=== PATIENT | male | born 2000 | race Caucasian/White ===

== ENCOUNTER 2025-02-24 01:27 | Day surgery (SDC) | payer OTHER, SELFPAY ==
[2025-02-08 15:33] VITALS: BMI 26.6
[2025-02-24 08:58] VITALS: BP 124/86; PULSE 67; RESP 18; TEMP 36.7; O2SAT 100; BMI 27.0
[2025-02-24] MEDS: LACTATED RINGERS 1,000 ML 150 ML IV CONT (09:14)
--- NOTE | 2025-02-24 09:28 | WPDANESEPPF ---
Anes - Initial Pre Proc Eval Procedure: Operation Date: 02/24/25 10:00 Proposed Procedures p Esophagogastroduodenoscopy - Zaire Jones MD Date/Time: 02/24/25 09:28 Surgeon: Zaire Jones MD Pre Op Diagnosis: Gastro-esophageal reflux disease without esophagit Patient Data Age: 24 Gender: M Height: 1.75 m Weight: 83.1 kg Last Vital Signs Temp 36.7 C 02/24/25 08:58 Pulse 67 02/24/25 08:58 Resp 18 02/24/25 08:58 BP 124/86 02/24/25 08:58 Pulse Ox 100 02/24/25 08:58 O2 Del Method Room Air 02/24/25 08:58 Allergies Allergy/AdvReac Type Severity Reaction Status Date / Time No Known Allergies Allergy Unknown Verified 02/24/25 08:57 Home Medications ?Medication ?Instructions ?Recorded ?Confirmed ?Type omeprazole 20 mg capsule,delayed 20 mg PO DAILY #90 caps 02/05/24 02/24/25 Rx release Patient hx anesthesia problems: none Family hx anesthesia problems: none Results Review: All pre-operative results and documents have been reviewed as part of the pre-operative evaluation. [facility] [place] Past Medical History Medical History (Updated 02/23/25 @ 15:42 by Luis Enrique Castaneda DO) GERD (gastroesophageal reflux disease) Surgical History Surgical History No history of previous surgery Family History Family History Grandparent Diabetes mellitus Hypertension Father Heart disease Mother No problems noted. Other Family history of heart disease in male family member before age 55 Social History Social History (Updated 12/09/24 @ 10:31 by Maricruz Lu MA) Social History: 11/30/24 Somewhat confident with medical forms Smoking status: Current every day smoker Tobacco type: e-cigarettes/vaping Alcohol intake: current Drinks per week: 12 Substance use type: does not use Do You Feel Safe in your Home?: Yes Lack of Transportation: No Lack of Food: Never True Current Housing: I Have Housing Concerned About Future Housing: No Difficulty Paying Gas/Electric Bills: No Difficulty Paying for Meds: No Currently Unemployed: No Education: Bachelor's Degree Difficulty w/ Childcare or Family Care: No Living arrangements: alone Spiritual care concerns: No Anes - Eval Final PreProcedure Day of Procedure 02/24/25 09:28 Patient weight: overweight Heart: regular rate and rhythm Lungs: clear to auscultation Airway: Mallampati scale class II Neurological: alert and oriented Last oral intake: >/= 8 hours ASA classification: II Emergent: no Anesthetic plan: proceed Anesthesia type and monitoring: general GIVS and standard monitoring Results Review: All pre-operative results and documents have been reviewed as part of the pre-operative evaluation. Informed Consent: The patient's anesthetic plan and its attendant risks and benefits were discussed with the patient/family/POA. Questions were solicited and answers provided to the satisfaction of the patient/family/POA.
--- NOTE | 2025-02-24 09:45 | P.HP_ITS ---
History of Present Illness History of Present Illness Consent: Risks, benefits, and alternatives have been discussed and questions answered. Patient agrees to proceed with procedure. Chief complaint: Gastro-esophageal reflux disease without esophagit Narrative: Diallo Mercer is a 24 year old male here for egd, had nausea and gerd on omeprazole, had egd 2020 with h pylori Review of Systems Review of Systems: All systems reviewed & are unremarkable except as noted in HPI and below PMFSH Past Medical History Medical History (Updated 02/23/25 @ 15:42 by Luis Enrique Castaneda DO) GERD (gastroesophageal reflux disease) Surgical History Surgical History No history of previous surgery Family History Family History Grandparent Diabetes mellitus Hypertension Father Heart disease Mother No problems noted. Other Family history of heart disease in male family member before age 55 Social History Social History (Updated 12/09/24 @ 10:31 by Maricruz Lu MA) Social History: 11/30/24 Somewhat confident with medical forms Smoking status: Current every day smoker Tobacco type: e-cigarettes/vaping Alcohol intake: current Drinks per week: 12 Substance use type: does not use Do You Feel Safe in your Home?: Yes Lack of Transportation: No Lack of Food: Never True Current Housing: I Have Housing Concerned About Future Housing: No Difficulty Paying Gas/Electric Bills: No Difficulty Paying for Meds: No Currently Unemployed: No Education: Bachelor's Degree Difficulty w/ Childcare or Family Care: No Living arrangements: alone Spiritual care concerns: No Meds Home Medications and Allergies Home Medications ?Medication ?Instructions ?Recorded ?Confirmed ?Type omeprazole 20 mg capsule,delayed 20 mg PO DAILY #90 ca ps 02/05/24 02/24/25 Rx release Allergies Allergy/AdvReac Type Severity Reaction Status Date / Time No Known Allergies Allergy Unknown Verified 02/24/25 08:57 Vital Signs Vital Signs - 24 hr 02/24/25 08:58 Temperature 98.1 F Pulse Rate 67 Respiratory Rate 18 Blood Pressure 124/86 Pulse Oximetry 100 Oxygen Delivery Room Air Exam Const: General: comfortable and no acute distress HENMT: Face/Nose/Sinus: Normal nares present Eyes: General: appearance normal, both eyes and all related structures Neck: Neck: no JVD Resp: Auscultation: clear to auscultation bilaterally Cardio: Rate: regular rate Rhythm: regular rhythm GI: Inspection: non-distended GI Palp: Yes Soft to palpation Skin: General skin exam: normal color Neuro: General: gait normal Speech: normal speech Extrem: General: normal to inspection Psych: Mental Status: mental status grossly normal Assessment and Plan Assessment and plan (1) GERD (gastroesophageal reflux disease): Qualifiers: Esophagitis presence: without esophagitis Qualified Code(s): K21.9 - Gastro-esophageal reflux disease without esophagitis Code(s): K21.9 - Gastro-esophageal reflux disease without esophagitis Status: Acute Assessment and Plan: egd with bx
[2025-02-24 09:52] VITALS: BP 88/39; PULSE 77; RESP 21; O2SAT 97
--- NOTE | 2025-02-24 09:52 | S_PTH ---
PATIENT: Diallo Mercer LOC: [facility]#:[id number] AGE/SX: 24/M ROOM: RE02/24/[address]: Zaire Jones MD : [id number] BED: DIS: 02/24/2025 SPEC #: [id number] RECD: 02/24/25 10:51 STATUS: DNOTA REFélix #: [id number] MELITA: 02/24/25 09:[address]: Zaire Jones DEPT: [facility] Surgical RECD BY: Abbi Greenberg ENTERED: 02/24/25 10:51 SP TYPE: Surgical OTHR DR: Anastasia Ridley APRN Tissues: A - Esophageal Biopsy B - Gastric Biopsy C - Small Bowel Bx Procedures: Hematoxylin and Eosin Stain Gross and Microscopic Level 4
[2025-02-24 10:02] VITALS: BP 85/45; PULSE 69; RESP 21; O2SAT 97
[2025-02-24 10:12] VITALS: BP 105/67; PULSE 66; RESP 17; O2SAT 100
[2025-02-24 11:03] LABS: HPYLORIRESULT Negative (Negative)
== END 2025-02-24 10:25 | disposition home or self-care (01) ==
PROVIDERS: PCP Nurse Practitioner Family; Referring Provider Nurse Practitioner Family; Visit Provider Internal Medicine Gastroenterology
PROC: 0DJ08ZZ Inspection of Upper Intestinal Tract, Via Natural or Artificial Opening Endoscopic (ICD-10-PCS; CPT 43239; principal; 2025-02-24 10:00)
DX: K21.00 Gastro-esophageal reflux disease with esophagitis, without bleeding (principal); F17.290 Nicotine dependence, other tobacco product, uncomplicated; Z82.49 Family history of ischemic heart disease and other diseases of the circulatory system
CPT/HCPCS: 43239; 87081; 88305; J2704; J7120